=== PATIENT | male | born 1985 | race African-American/Black ===

== ENCOUNTER 2022-07-10 09:43 | Emergency (ER) | payer OTHER, SELFPAY ==
[2022-07-10 09:50] VITALS: BP 114/60; PULSE 55; RESP 17; TEMP 36.6; O2SAT 98; BMI 24.4
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
== END 2022-07-10 10:53 | disposition home or self-care (01) ==
PROVIDERS: Emergency Provider Emergency Medicine
DX: M54.50 Low back pain, unspecified (principal)
CPT/HCPCS: 99283

== ENCOUNTER 2022-07-15 07:46 | Emergency (ER) | payer OTHER, SELFPAY ==
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
[2022-07-15 07:57] VITALS: BP 118/72; PULSE 52; O2SAT 99
[2022-07-15 08:05] VITALS: BP 129/77; PULSE 49; RESP 18; TEMP 36.9; O2SAT 97; BMI 24.9
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
[2022-07-15] MEDS: ondansetron HCL 4 MG/2 ML VIAL IVPUSH (09:16)
[2022-07-15] MEDS: Famotidine/PF 20 MG/2 ML VIAL IVPUSH (09:16)
[2022-07-15] MEDS: 0.9 % Sodium Chloride 1,000 ML 999 ML IVCONT (09:16)
[2022-07-15 09:21] LABS: Hematocrit 47.4 % (42.0-52.0); Hemoglobin 15.2 g/dl (14.0-18.0); Mean Corpuscular HGB Conc 32.1 g/dl (31.0-36.0); Mean Corpuscular Hemoglobin 31.5 pg (27.0-33.0); Mean Corpuscular Volume 98.3 fL (80.0-98.0); Mean Platelet Volume 11.6 fL (9.4-12.4); Platelet Count 184 X10*3/uL (160-400); Red Blood Count 4.82 X10*6/uL (4.60-5.80); Red Cell Distribution Width 11.2 % (11.0-16.0); WBC ABN SCTR FOR CBC 1
[2022-07-15 09:40] LABS: Lymphocytes Percent Manual 8 % (20-40); Monocytes Percent Manual 3 % (2-11); Neutrophils Percent Manual 89 % (45-73)
[2022-07-15 09:41] LABS: Band Neutrophils Percent 0 % (3-5)
[2022-07-15 09:42] LABS: Alanine Aminotransferase 26 U/L (0-40); Albumin Level 5.1 g/dL (3.5-5.0); Alkaline Phosphatase 84 U/L (39-117); Anion Gap 18 (12-20); Aspartate Amino Transferase 43 U/L (5-37); Bilirubin Direct 0.3 mg/dL (0.0-0.5); Bilirubin Total 0.6 mg/dL (0.0-1.0); Blood Urea Nitrogen 13 mg/dL (9-16); Calcium 9.9 mg/dL (8.4-10.2); Carbon Dioxide 25 mmol/L (22-29); Chloride 102 mmol/L (96-108); Creatinine Clr Calc Pharmacy 110.9; Estimated Glomerular Filt Rate > 60; Glucose Random 103 mg/dL (60-115); Large Platelet PRESENT; Lipase 125 U/L (8-78); Magnesium 2.3 mg/dL (1.6-2.6); Platelet Estimate NORMAL (NORMAL); Platelet Morphology Comment NOTED; Potassium 4.2 mmol/L (3.3-5.1); RBC Morphology NORMAL; Sodium 141 mmol/L (135-145); Total Protein 8.3 g/dL (6.5-8.0)
[2022-07-15 09:44] LABS: Lymphocytes Absolute Manual 1.1 X10*3/uL (1.2-4.9); Monocytes Absolute Manual 0.4 X10*3/uL (0.1-1.2); Neutrophils Absolute Manual 12.7 X10*3/uL (2.0-8.3); White Blood Count 14.3 X10*3/uL (4.8-10.8)
[2022-07-15 10:52] LABS: Ethanol < 10 mg/dL; Lactate Dehydrogenase 242 U/L (118-273)
[2022-07-15 10:56] VITALS: BP 110/60; PULSE 65; RESP 16; TEMP 36.7; O2SAT 99
[2022-07-15] MEDS: iohexoL 350 MG/ML 100 ML INFUS..BTL IV (10:57)
== END 2022-07-15 14:04 | disposition home or self-care (01) ==
PROVIDERS: Emergency Provider Emergency Medicine
DX: K29.01 Acute gastritis with bleeding (principal); M54.50 Low back pain, unspecified; R11.2 Nausea with vomiting, unspecified; Z79.899 Other long term (current) drug therapy
CPT/HCPCS: 36415; 72100; 74177; 80048; 80076; 82077; 83615; 83690; 83735; 85007; 85027; 96374; 96375; 99283; 99284; J2405; Q9967